=== PATIENT | male | born 1955 | race Caucasian/White ===

== ENCOUNTER 2020-06-23 13:58 | Emergency (ER) | payer OTHER ==
[2020-06-23 14:50] LABS: Absolute Lymphocytes (CBC) 0.5 K/uL (0.7-4.9); Basophils % 0.6 % (0-1.3); Hematocrit 39.6 % (39.6-49.0); Lymphocytes % 5.4 % (15.3-44.8); MPV 8.5 fL (7.6-11.3); RBC Red Blood Cell Count 4.58 M/uL (4.33-5.43)
[2020-06-23 15:07] LABS: BUN Blood Urea Nitrogen 13 mg/dL (7-18); Bicarbonate 28 mmol/L (21-32); Glucose Level 354 mg/dL (74-106); NT PRO-BNP 508 pg/mL (<125); Potassium 3.8 mmol/L (3.5-5.1); Sodium Level 133 mmol/L (136-145); Troponin (Emerg Dept Use Only) < 0.02 ng/mL (0.0-0.045)
[2020-06-23 15:11] LABS: Protime INR 1.05
--- NOTE | 2020-06-23 15:17 | RAD REPORT ---
EXAM DESCRIPTION: RAD - Chest Single View - 06/23/2020 3:05 pm CLINICAL HISTORY: CHEST PAIN, left side COMPARISON: Single-view chest August 2014 TECHNIQUE: AP portable chest image was obtained 06/23/2020 3:05 pm . FINDINGS: No focal mass or consolidation. Interstitial markings are prominent in part due to the low er lung volume. Minimal ground-glass opacities are present as well. Heart and vasculature are normal. No measurable pleural effusion and no pneumothorax. No acute bony abnormality seen. No acute aortic findings suspected. IMPRESSION: No large mass or consolidation. Increased interstitial opacification in some hazy alveolar opacification present could be noncardioge froilan edema or viral infiltrate. A mild or early COVID-19 pneumonia cannot be excluded though there are no findings noted in the history to indicate suspicion.
[2020-06-23 15:25] LABS: Blood Morphology Comment NOT SEEN (NOT SEEN); Platelet Estimate ADEQ; White Blood Cell Scan OK (OK)
[2020-06-23] MEDS ORDERED: NA CHLORIDE 0.9% 500 ML ONE (15:50)
--- NOTE | 2020-06-23 16:09 | EKG ---
Test Date: 2020-06-23 Test Time: 14:17:54 Cell Efficiency Supervisor: RITA MEASUREMENT RESULTS: Intervals: Rate: 111 LA: 162 QRSD: 80 QT: 344 QTc: 467 [place]: P: 57 LA: 162 QRS: -19 T: 73 INTERPRETIVE STATEMENTS: Sinus tachycardia Otherwise normal ECG Compared to ECG 09/05/2014 16:08:41 Sinus rhythm no longer present Electronically Signed On 06-23-20 16:08:29 SALES ACCOUNT REPRESENTATIVE by Jhonny Araujo
--- NOTE | 2020-06-23 16:35 | RAD REPORT ---
EXAM DESCRIPTION: CT - Chest For Pe Angio - 06/23/2020 4:07 pm CLINICAL HISTORY: CHEST PAIN, left side COMPARISON: No comparisons TECHNIQUE: Dynamically enhanced 3 mm thick images of the chest were obtained during administration o f approximately 150mL Isovue 370 IV contrast. Coronal and oblique MIP reconstruction images were gene rated and reviewed. Exam utilizes a protocol to evaluate the pulmonary arterial tree. All CT scans are performed using dose optimization technique as appropriate and may include automated exposure control or mA/KV adjustment according to patient size. FINDINGS: No pulmonary emboli are identified. The aorta as imaged shows no acute or suspicious finding. No pericardial thickening or effusion. No c ardiomegaly. No infiltrate or mass in the lung parenchyma. No pleural effusion or pleural thickening. No mediastinal or hilar suspicious masses. No chest wall masses or abnormal axillary lymphadenopathy. Bony degenerative change present. No acute or pathologic bone process identifiable. IMPRESSION: No pulmonary emboli identified. No other significant or suspicious findings.
--- NOTE | 2020-06-23 16:45 | EDPHYS ---
Physician Documentation [facility] Name: Zeyad Muse Age: 64 yrs Sex: Male : 1955 Arrival Date: 06/23/2020 Time: 14:21 Bed 5 Private MD: ED Physician Andrews Miles HPI: 06/23 14:23 This 64 yrs old Male presents to ER via Unassigned with complaints of chest rn pain. 14:23 The patient or guardian reports chest pain that is located primarily in the substernal rn area, anterior aspect of left upper chest and left lateral anterior chest. Onset: this morning. The pain does not radiate. Associated signs and symptoms: Pertinent positives: None. Pertinent negatives: abdominal pain, diaphoresis, lower extremity swelling, palpitations, shortness of breath, syncope, vomiting. The chest pain is described as aching, dull. Duration: The patient or guardian reports multiple episodes, that are intermittent, the episodes last approximately 3 minute(s). Modifying factors: The symptoms are alleviated by nothing. the symptoms are aggravated by nothing. Severity of pain: At its worst the pain was moderate in the emergency department the pain has resolved. The patient has not experienced similar symptoms in the past. Reports intermittent chest pain since this AM, lasts about 3 minutes, non-radiating, no diaphoresis. Resolved after nitro and aspirin. No trauma. + smoker with cough, no new features. No abd pain. Does not feel ill. . Historical: - Allergies: 14:44 No Known Allergies; iw - PSHx: 14:44 stents to legs; left arm; pain pump; iw - Family history:: not pertinent. - Hospitalizations: : No recent hospitalization is reported. ROS: 14:23 Constitutional: Negative for fever, chills, and weight loss, Eyes: Negative for injury, rn pain, redness, and discharge, ENT: Negative for injury, pain, and discharge, Neck: Negative for injury, pain, and swelling, Cardiovascular: Negative for palpitations, and edema, Respiratory: Negative for shortness of breath, cough, wheezing, and pleuritic chest pain, Abdomen/GI: Negative for abdominal pain, nausea, vomiting, diarrhea, and constipation, MS/Extremity: Negative for injury and deformity, Skin: Negative for injury, rash, and discoloration, Neuro: Negative for headache, weakness, numbness, tingling, and seizure. Exam: 14:23 Constitutional: This is a well developed, well nourished patient who is awake, alert, rn and in no acute distress. Head/Face: Normocephalic, atraumatic. Cardiovascular: Regular rate and rhythm. No pulse deficits. Respiratory: No increased work of breathing, no retractions or nasal flaring. Abdomen/GI: soft, non-tender Skin: Warm, dry MS/ Extremity: Pulses equal, no cyanosis. Neurovascular intact. Full, normal range of motion. Equal circumference. Neuro: Awake and alert, GCS 15 Vital Signs: 14:29 BP 178 / 89; Pulse 115; Resp 20 S; Temp 98.4; Pulse Ox 97% on R/A; iw MDM: 14:22 Patient medically screened. rn 16:42 Differential diagnosis: acute myocardial infarction, acute pericarditis, coronary rn artery disease chest wall pain, costochondritis, esophagitis, gastritis, gastroesophageal reflux disease (GERD), pericarditis, pleurisy, pneumonia, pneumothorax, pulmonary embolus, stable angina, unstable angina. The patient was not given aspirin in the Emergency Department. Administered by EMS. Data reviewed: vital signs, nurses notes, lab test result(s), EKG, radiologic studies, and as a result, I will admit patient. Counseling: I had a detailed discussion with the patient and/or guardian regarding: the historical points, exam findings, and any diagnostic results supporting the discharge/admit diagnosis, lab results, radiology results, the need for further work-up and treatment in the hospital. Response to treatment: the patient's symptoms have resolved after treatment, the patient's condition has returned to base line, the patient is now symptom free, NO further episodes of chest pain after arrival. . Refusal of service: The patient/guardian displays adequate decision making capability and despite a detailed discussion of alternatives, benefits, risks, and consequences refuses: Admission to the hospital for further work-up and treatment. Special discussion: Based on the history and exam findings, there is no indication for further emergent testing or inpatient evaluation. I discussed with the patient/guardian the need to see the laundry supervisor for further evaluation of the symptoms. ED course: Trop neg, no ischemia on ecg, recommend admission for cardiac w/u given risk factors and no other etiology of chest pain found, patient does not want to be admitted, wants to go home, explained if this is his heart, could have heart attack if leaves, understands. Pt attributes pain to reflux or "something [he] ate", so wants to go home. Urged him to f/u with cardiology for stress test or return if symptoms worsen or persist and cannot get in with laundry supervisor. . 06/23 14:28 Order name: Basic Metabolic Panel; Complete Time: 15:18 rn 06/23 14:28 Order name: CBC with Diff; Complete Time: 16:37 rn 06/23 14:28 Order name: NT PRO-BNP; Complete Time: 15:19 rn 06/23 14:28 Order name: PT-INR; Complete Time: 15:19 rn 06/23 14:28 Order name: Troponin (emerg Dept Use Only); Complete Time: 15:19 rn 06/23 14:28 Order name: XRAY Chest (1 view); Complete Time: 15:19 rn 06/23 14:28 Order name: EKG; Complete Time: 14:29 rn 06/23 14:28 Order name: Cardiac monitoring; Complete Time: 14:42 rn 06/23 15:22 Order name: CT Chest For PE Angio; Complete Time: 16:37 rn 06/23 15:25 Order name: CBC Smear Scan; Complete Time: 16:37 EDMS 06/23 16:48 Order name: COVID-19/FLU A+B EDMS 06/23 14:28 Order name: EKG - Nurse/Tech; Complete Time: 14:42 rn 06/23 14:28 Order name: IV Saline Lock; Complete Time: 14:42 rn 06/23 14:28 Order name: Labs collected and sent; Complete Time: 14:43 rn 06/23 14:28 Order name: O2 Per Protocol; Complete Time: 14:43 rn 06/23 14:28 Order name: O2 Sat Monitoring; Complete Time: 14:43 rn Administered Medications: 15:42 Drug: NS 0.9% 500 ml Route: IV; Rate: bolus; Site: right wrist; iw Disposition: 06/23/20 16:45 Patient has left against medical advice. Impression: Chest pain, unspecified. - Patients states they are going to Home. - Condition is Stable. - Discharge Instructions: Nonspecific Chest Pain, Pain Without a Known Cause. Follow up: Jhonny Araujo MD; When: As needed; Reason: Recheck today's complaints, Re-evaluation by your physician. - Problem is new. - Symptoms have improved. Signatures: Dispatcher [employer] EDAfsaneh Bailey RN RN iw Nieto, Roman, MD MD rn Calderon, Audri, RN RN aa5 Corrections: (The following items were deleted from the chart) 15:59 15:23 CORONAVIRUS+MR.LAB.BRZ ordered. [facility] 17:16 16:45 06/23/2020 16:45 Patients has left against medical advice. Impression: Chest aa5 pain, unspecified. Patient states they are going to Home. Condition is Stable. Follow up: Jhonny Araujo; When: As needed; Reason: Recheck today's complaints, Re-evaluation by your physician. Problem is new. Symptoms have improved. rn
--- NOTE | 2020-06-23 16:45 | ER ---
Nurse's Notes [facility] Name: Zeyad Muse Age: 64 yrs Sex: Male : 1955 Arrival Date: 06/23/2020 Time: 14:21 Bed 5 Private MD: Diagnosis: Chest pain, unspecified Presentation: 06/23 14:29 Chief complaint: Patient states: left sided chest pain stated around 1130 am today. iw intermittent, lasts about 3-5 minutes, EMS gave 325 ASA and 1 SL Nitro, pain has now resolved, pt non compliant with meds, states he has seen a doctor in past for his heart but he doesn't remember who it was, pt tachycardic at 113 and hypertensive. Coronavirus screen: At this time, the client does not indicate any symptoms associated with coronavirus-19. Ebola Screen: Patient negative for fever greater than or equal to 101.5 degrees Fahrenheit, and additional compatible Ebola Virus Disease symptoms Patient denies exposure to infectious person. Patient denies travel to an Ebola-affected area in the 21 days before illness onset. No symptoms or risks identified at this time. Initial Sepsis Screen: Does the patient meet any 2 criteria? No. Patient's initial sepsis screen is negative. Does the patient have a suspected source of infection? No. Patient's initial sepsis screen is negative. Risk Assessment: Do you want to hurt yourself or someone else? Patient reports no desire to harm self or others. Onset of symptoms was June 23, 2020. 14:29 Method Of Arrival: EMS: [facility] iw 14:29 Acuity: JESUS ALBERTO 2 iw 14:33 Care prior to arrival: Medication(s) given: ASA, 325 mg, Nitroglycerin, 0.4 mg SL x 1, iw IV initiated. 20 GA, in the right wrist, Glucose check: 300. Historical: - Allergies: 14:44 No Known Allergies; iw - PSHx: 14:44 stents to legs; left arm; pain pump; iw - Family history:: not pertinent. - Hospitalizations: : No recent hospitalization is reported. Screenin:43 Abuse screen: Denies threats or abuse. Denies injuries from another. Nutritional iw screening: No deficits noted. Tuberculosis screening: No symptoms or risk factors identified. Fall Risk IV access (20 points). Assessment: 14:54 General: Appears in no apparent distress. Behavior is calm, cooperative. Pain: iw Complains of pain in chest and left lateral anterior chest and anterior aspect of left upper chest Pain does not radiate. Pain currently is 0 out of 10 on a pain scale. at worst was 8 out of 10 on a pain scale. Pain began 3 hours ago. Is intermittent. Neuro: Level of Consciousness is awake, alert, obeys commands, Oriented to person, place, time, situation. Cardiovascular: Reports chest pain, Capillary refill < 3 seconds in bilateral fingers Patient's skin is warm and dry. Respiratory: Respiratory effort is even, unlabored, Respiratory pattern is regular, symmetrical. GI: Abdomen is flat, non-distended. Derm: Skin is intact. Musculoskeletal: Range of motion: intact in all extremities. 16:21 Reassessment: Patient appears in no apparent distress at this time. Patient and/or iw family updated on plan of care and expected duration. Pain level reassessed. Patient is alert, oriented x 3, equal unlabored respirations, skin warm/dry/pink. pt repositioned in bed for comfort, given warm blanket and urinal. Vital Signs: 14:29 BP 178 / 89; Pulse 115; Resp 20 S; Temp 98.4; Pulse Ox 97% on R/A; iw ED Course: 14:21 Patient arrived in ED. aa5 14:22 Andrews Miles MD is Attending Physician. rn 14:28 Afsaneh Castillo, SENG is Primary Nurse. iw 14:33 Triage completed. iw 14:33 Arm band placed on. iw 14:43 Initial lab(s) drawn, by me, sent to lab. Maintain EMS IV. Dressing intact. Good blood iw return noted. Site clean \T\ dry. Gauge \T\ site: 20 Right wrist. 15:06 XRAY Chest (1 view) In Process Unspecified. EDMS 16:07 CT Chest For PE Angio In Process Unspecified. EDMS 16:45 Jhonny Araujo MD is Referral Physician. rn 17:15 No provider procedures requiring assistance completed. IV discontinued, intact, iw bleeding controlled, No redness/swelling at site. Pressure dressing applied. Patient maintains SpO2 saturation greater than 95% on room air. Administered Medications: 15:42 Drug: NS 0.9% 500 ml Route: IV; Rate: bolus; Site: right wrist; iw Outcome: 17:15 AMA AMA form signed iw 17:15 Condition: good 17:16 Patient left the ED. aa5 Signatures: Dispatcher [employer] Afsaneh Quick RN RN iw Nieto, Roman, MD MD rn Calderon, Audri, RN RN aa5
[2020-06-23 16:47] LABS: SARS-COV-2 RT PCR NEGATIVE (NEGATIVE)
[2020-06-23 17:20] VITALS: BP 178/89; TEMP 98.4; O2SAT 97
== END 2020-06-23 17:16 | disposition left against medical advice (07) ==
LOC: ER 13:58
DX: R07.9 Chest pain, unspecified (principal); Z20.822 Contact with and (suspected) exposure to COVID-19
CPT/HCPCS: 93005; 85025; 80048; 36415; 85610; 84484; 83880; 0240U; 71275; 71045; 99284; Q9967; J7040